=== PATIENT | male | born 1955 ===

== ENCOUNTER 2023-05-31 14:07 | Inpatient (IN) | payer BC, MEDICARE, SELFPAY ==
[2023-05-31] VITALS (10 sets, daily range): BP systolic 123–151; BP diastolic 65–73
--- NOTE | 2023-05-31 12:25 | ED.GENMED ---
History of Present Illness
General
Chief Complaint: Dehydration Symptoms
Time Seen by Provider: 05/31/23 12:24
Travel History
Have you had any contact with someone who has COVID-19?: No
Do you have any symptoms of coronavirus? Fever > 100 degrees, chills, cough, shortness of breath, sore throat, loss of taste or smell, muscle aches, or headache?: No
History of Present Illness
History of Present Illness:
HPI: The patient started having weakness last evening. Today about 3 hours ago, the patient had 'heartburn'. He had trouble getting out of the car. EMS was called. He was given aspirin and nitroglycerin prior to arrival which has not resolved
the symptoms.
EXAM:
GENERAL: Well appearing in no distress
HEENT: Moist oral mucosa
CARDIOVASCULAR: No murmurs, normal heart rate, regular rhythm, No chest wall tenderness
PULMONARY: No respiratory distress, breath sounds are clear and equal
ABDOMEN: Soft with no peritoneal signs, no tenderness
NEUROLOGIC: Excellent strength all extremities, no coordination deficits
PSYCHIATRIC: Appropriate mental status, normal insight and judgement
EXTREMITIES: Nontender, no edema, moves all extremities equally
SKIN: No rash, no lesions
TIME OF INITIAL ENCOUNTER: 12:22 PM
NUMBER AND COMPLEXITY OF PROBLEMS ADDRESSED AT THE ENCOUNTER
� Chronic conditions affecting care: High blood pressure
� Acute Exacerbation and/or Progression of Chronic Illness: This is an acute problem
� Differential Diagnosis includes: ACS/STEMI, GERD/gastritis, noncardiac chest pain
AMOUNT AND/OR COMPLEXITY OF DATA TO BE REVIEWED AND ANALYZED
� I performed an independent evaluation of and my interpretation is:
EKG: There is ST elevation in the inferior leads with reciprocal changes in the precordial leads�this is new in comparison to 10/02/2022
CT:
X-rays:
Laboratory Studies: White count 20.1, hemoglobin normal at 15.0, sodium 129, initial troponin less than 0.012
Other:
� Review of other/old records: The patient was here this past September with fatigue/dehydration�at that time white count was 12.0 and renal function was normal
� Clinical information was obtained by an independent historian: I spoke to the at bedside
� Prescriptions/Medications Considered but not given:
� Further testing considered but not performed:
RISK OF COMPLICATIONS AND/OR MORBIDITY OR MORTALITY OF PATIENT MANAGEMENT
� Social determinants of health affecting care: Lives at home
� Discussion with other providers: STEMI alert called at 12:24 PM�I also texted Dr. Tinoco at time of my review of EKG. Dr. Briceno arrive shortly after STEMI alert called.
� Escalation of care including admission/observation vs risk of discharge considered: EKG is changed compared to prior. The patient describes more of a heartburn count of sensation and no 'chest pain'. The symptoms in the chest
are acute over the past hour and a half. I am concerned for inferior wall STEMI. He was given aspirin prior to arrival. The patient was given by EMS and I also asked the nurse to give Brilinta. I asked nursing to let Dr. Briceno decide regarding
heparinization.
Phy Exam
Physical Exam
Physical Exam:
See HPI
Course
Orders/Labs/Results
Orders:
Orders
05/31/23 12:11
Electrocardiogram (*1) Urgent
Reason for Study: Chest Pain
EKG- Treatment ONCE
05/31/23 12:24
Type+Screen Urgent
Complete Blood Count/With Diff Urgent
Comprehensive Metabolic Panel Urgent
Protime/PTT Urgent
Troponin I Urgent
05/31/23 12:31
Fentanyl Citrate/Pf [Sublimaze] 100 mcg .ROUTE .STK-MED ONE
Midazolam HCl [Versed] 2 mg .ROUTE .STK-MED ONE
05/31/23 12:32
Heparin 10,000 units .ROUTE .STK-MED ONE
Heparin 1000 Units/500 ml [Heparin] 1,000 units in 500 ml .ROUTE .STK-MED
Heparin Sodium,Porcine/Ns/Pf [Heparin 2000 Units/1000 ml] 2,000 unit in 1,000 ml .ROUTE .STK-MED
Lidocaine HCl/Pf [Xylocaine-Mpf 1% Vial] 50 mg .ROUTE .STK-MED ONE
Nitroglycerin [Tridil] 1,500 mcg .ROUTE .STK-MED ONE
05/31/23 12:40
Heparin 5,000 units .ROUTE .STK-MED ONE
Ticagrelor [Brilinta] 180 mg .ROUTE .STK-MED ONE
05/31/23 12:49
Verapamil Injectable [Isoptin/Verapamil Injection] 5 mg .ROUTE .STK-MED ONE
05/31/23 13:36
Nitroglycerin [Tridil] 1,500 mcg .ROUTE .STK-MED ONE
Abnormal Lab Results
05/31/23 05/31/23 05/31/23
12: 12:59 13:08
WBC 20.1 H 10^3/uL
(4.8-10.8)
MCH 31.2 H pg
(27.0-31.0)
Abs Immat Gran (auto) 0.1 H 10^3/uL
(0-0.05)
Absolute Neuts (auto) 14.4 H 10^3/uL
(1.4-6.5)
Absolute Lymphs (auto) 4.4 H 10^3/uL
(1.2-3.4)
Absolute Monos (auto) 1.0 H 10^3/uL
(0.1-0.6)
Immature Gran % 0.6 H %
(0-0.5)
Sodium 129 L mmol/L
(135-145)
Chloride 93 L mmol/L
(98-107)
BUN 23 H mg/dl
(9-20)
Glucose 141 H mg/dl
(70-99)
POC ACT Low Range 229 H Seconds 326 H Seconds
(116-155) (116-155)
05/31/23
13:31
WBC
MCH
Abs Immat Gran (auto)
Absolute Neuts (auto)
Absolute Lymphs (auto)
Absolute Monos (auto)
Immature Gran %
Sodium
Chloride
BUN
Glucose
POC ACT Low Range 377 H Seconds
(116-155)
05/31/23 12:24
05/31/23 12:24
Vital Signs
Initial and Last Documented VS:
Initial Vital Signs
Temp Pulse Resp BP Pulse Ox
98.3 F 68 20 129/66 99
05/31/23 12:11 05/31/23 12:11 05/31/23 12:11 05/31/23 12:11 05/31/23 12:11
Last Documented Vital Signs
Temp Pulse Resp BP Pulse Ox
98.3 F 68 20 129/66 99
05/31/23 12:11 05/31/23 12:11 05/31/23 12:11 05/31/23 12:11 05/31/23 12:11
*Critical Care Note
Total Time (30-74mins, 75-104mins- exclusive of procedures): Not Applicable
ED Attending Note
-
Portions of this chart may have been created with voice recognition software.� Occasional wrong word or��sound alike� substitutions may have occurred due to the inherent limitations of voice recognition software.
Discharge Plan
Departure
Patient Disposition: Admit
Date of Disposition: 05/31/23
Time of Disposition: 12:33
Presentation/result/management discussed w/ accepting MD/DO: dr briceno
Discharge Problem:
Acute ST elevation myocardial infarction (STEMI) of inferior wall
Interventions
Interventions:
*Risk Screen - Suicide Last Done: 05/31/23 12:07
*General Assessment Last Done: 05/31/23 12:07
*Neglect/Abuse Screening Last Done: 05/31/23 12:07
ED- Fall Risk Assessment Last Done: 05/31/23 12:50
*ED COVID-19 Vaccine History Last Done: 05/31/23 12:07
*Nursing Disposition Last Done: 05/31/23 12:50
ED- Cardiac Assessment Last Done: 05/31/23 12:22
ED- Neurological Assessment Last Done: 05/31/23 12:22
ED- Pulmonary Assessment Last Done: 05/31/23 12:22
Discharge Date and Time
Discharge Date/Time: 05/31/23 12:51
--- NOTE | 2023-05-31 12:31 | ED TECH ---
A STEMI ALERT was called# [id number] # per @12:24 .
[2023-05-31 12:42] LABS: % Basophils 0.2 % (0-2); % Eosinophils 0.1 % (0-6); % Immature Granulocytes 0.6 % (0-0.5); % Neutrophils 72.1 % (42.2-75.2); Absolute Basophils 0.1 10^3/uL (0-0.2); Absolute Immature Granulocytes 0.1 10^3/uL (0-0.05); Absolute Lymphocytes 4.4 10^3/uL (1.2-3.4); Absolute Neutrophils 14.4 10^3/uL (1.4-6.5); Hematocrit 44.8 % (39.0-52.0); Mean Corp Hgb Conc. 33.5 g/dL (33.0-37.0); Mean Corpuscular Hgb 31.2 pg (27.0-31.0); Mean Corpuscular Volume 93.1 fL (80.0-94.0); Mean Platelet Volume 8.7 fL (7.4-10.4); Nucleated Red Blood Cells % 0 % (-); Platelet Count 385 10^3/uL (130-400); Red Blood Cell Count 4.81 10^6/uL (4.70-6.10); Red Cell Dist. Width 12.2 % (11.5-14.5); White Blood Cell Count 20.1 10^3/uL (4.8-10.8)
[2023-05-31 12:52] LABS: INR 1.04; PT 13.5 Sec (11.4-14.6)
[2023-05-31 12:53] LABS: APTT 25.5 Sec (23.4-35.0)
--- NOTE | 2023-05-31 12:56 | HPS.HSE ---
Family Physician
-
Family Physician: Zahraa Mar
Chief Complaint
-
Inferior STEMI
History of Present Illness
68 yo WM h/o HTN, HLD, neurogenic lymes with residual weakness and chronic fatigue, daily ETOH and family history of CAD. He had worsening weakness last night with difficultly getting out of the car. 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
called EMS, ASA, nitro sl given with no relief. EKG on arrival slight inferior ST elevation and reciprocal ST depression ant/lat leads. He was given heparin, Brilinta and brought urgently to the lab technologist.
Medical History
Past Medical History
Past Medical History: Reports HTN and Hypercholesterolemia
Additional Past Medical History:
Cataracts, neurogenic lymes disease, chronic fatigue
Past Surgical History: Reports Appendectomy and Other (R cataract)
Social History
Tobacco: Non-smoker
Alcohol: Daily (3 beers/day)
Family History
Family History: CAD and Cancer
Allergies / Home Medications
Allergies reflects when Allergies were last updated in [facility].
Home Medications with original date entered in [facility]
Allergy/Medication List:
Allergies
Allergy/AdvReac Type Severity Reaction Status Date / Time
Penicillins Allergy Unknown Unknown Verified 05/31/23 13:03
�Medication �Instructions �Recorded �Confirmed �Type
amlodipine 10 mg tablet 10 mg PO DAILY Blood Pressure 05/31/23 05/31/23 History
hydrochlorothiazide 50 mg tablet 50 mg PO DAILY Blood Pressure 05/31/23 05/31/23 History
losartan 100 mg tablet 100 mg PO DAILY Blood Pressure 05/31/23 05/31/23 History
Review of Systems
-
Constitutional: Reports Fatigue
Cardiac: Reports Chest Pain ('heartburn')
Physical Exam
Vital Signs
Vital Signs
Temp Pulse Resp BP Pulse Ox
98.3 F 68 20 129/66 99
05/31/23 12:11 05/31/23 12:11 05/31/23 12:11 05/31/23 12:11 05/31/23 12:11
Physical Exam
Cardiac: S1/S2 and Regular Rhythm (full exam deferred as being prepped and draped for emergent cath)
Neuro: AO x 3
Laboratory Results
-
05/31/23 12:24
Data Reviewed
-
Medical Tests (Nuc Med, Echo, EKG etc): Report Reviewed by me
Impression/Plan
-
PCP: Zahraa Mar MD
IMPRESSION:
Inferior STEMI
HTN
HLD
Neurogenic Lyme's disease 2014
Chronic myelopathy with LE weakness
Cataracts
daily ETOH
PLAN:
Admit IVU post cath, occluded LCx
serial troponin to peak
Check Echo
Leukocytosis - afebrile, trend, if remains elevated shultz culture
DAPT ASA/Brilinta (CM to eval cost)
continue losartan, amlodipine, stop HCTZ and add BB
check CVE start high intensity statin
ETOH cessation reinforced
Cardiac rehab c/s
f/u [facility]
Monitor on tele 48 hour post STEMI
[2023-05-31 13:04] LABS: ACT-LR - POC 229 Seconds (116-155)
[2023-05-31 13:09] LABS: ALT (SGPT) 28 U/L (0-50); AST (SGOT) 25 U/L (17-59); Albumin 4.4 g/dl (3.5-5.0); Alkaline Phosphatase 70 U/L (38-126); Blood Urea Nitrogen 23 mg/dl (9-20); Calcium 9.4 mg/dl (8.4-10.2); Carbon Dioxide 24 mmol/L (22-30); Chloride 93 mmol/L (98-107); Glucose 141 mg/dl (70-99); Potassium 3.7 mmol/L (3.5-5.1); Sodium 129 mmol/L (135-145); Total Bilirubin 0.9 mg/dl (0.2-1.3); Total Protein 7.1 g/dl (6.3-8.2); Troponin I < 0.012 ng/ml; eGFR > 60.00
[2023-05-31 13:18] LABS: ACT-LR - POC 326 Seconds (116-155)
[2023-05-31 13:38] LABS: ACT-LR - POC 377 Seconds (116-155)
[2023-05-31 13:59] LABS: ACT-LR - POC 261 Seconds (116-155)
[2023-05-31] MEDS: TYLENOL 650 MG PO (14:35)
--- NOTE | 2023-05-31 14:42 | ITS.CL.CATH ---
Explosive Ordnance Disposal Technician - Catheterization
Cardiac Catheterization
Procedure Report:
LEFT HEART CATH AND CORONARY INTERVENTION
Date of Procedure: May 31, 2023
Referring: [facility] Emergency Department
PROCEDURES:
1. Left heart catheterization with coronary and single-plane left ventriculography
2. Balloon angioplasty of the AV continuation of the circumflex into a terminal obtuse marginal branch with a 2.0 mm balloon and balloon angioplasty to the distal circumflex with a 2.0 mm balloon.
3. Suction thrombectomy with RASHIDA catheter and placement of QuickCross microcatheter to the terminal obtuse marginal branch.
INDICATION: This is a 68-year-old gentleman with a past medical history notable for hypertension, hyperlipidemia and 'neurologic Lyme disease' with residual weakness and fatigue. He consumes 3-4 alcoholic beverages daily. He reported the onset of
significant fatigue on the evening prior to admission and the development of substernal chest pressure approximately 3 hours prior to presentation. His electrocardiogram was notable for inferior ST segment elevation with reciprocal changes in the
anterolateral leads. He continued to experience chest discomfort and the decision was made to proceed with coronary angiography
ACCESS: Right radial artery, 6 Lao sheath
HEMODYNAMICS (mmHg):
AO (s/d, m) : 125/66, 88
LV (s/d) : 125/15
LVEDP : 25
CORONARY FINDINGS
Dominance: Right
LEFT MAIN: Normal
LEFT ANTERIOR DESCENDING: The LAD arises normally from the left main and runs in the anterior interventricular groove. The first diagonal branch and bifurcates to two large branches. The more lateral ranch has a 60% mid stenosis and the more
lateral branch has mild irregularities. The mid to distal LAD beyond the diagonal branch has diffuse minor irregularities with no focal obstructive stenosis
CIRCUMFLEX: The circumflex is a medium caliber nondominant vessel. OM1 is very small. OM 2 is a large and bifurcates distally into a smaller more lateral daughter branch and larger more vessel. The circumflex then continues in the AV groove and
becomes 100% occluded distally beyond a small posterolateral branch
RIGHT CORONARY: The right coronary artery is a dominant vessel with a 40% proximal stenosis. The PDA is a moderate to large caliber vessel. The posterolateral branch is small.
VENTRICULOGRAPHY: Left ventriculography is performed in an SHARPE projection. The digital single-plane left ventricular ejection fraction is estimated at 60%. No regional wall motion abnormalities.
ANGIOPLASTY PROCEDURE DETAIL: Upon review of the diagnostic angiogram the decision was made to proceed with percutaneous revascularization of the occluded distal circumflex. Intravenous heparin was administered and the ACT was monitored throughout
the procedure. A short BMW guidewire was advanced to the distal circumflex and beyond the occluded segment into a distal RV marginal branch with no resistance. Balloon angioplasty was performed using a 2.0 mm Trek balloon with serial inflations
distal to proximal. No antegrade flow was restored. A second BMW guidewire was obtained and advanced to a more distal branch and balloon dilation was performed with a 2 mm Trek balloon. Antegrade flow and still was not restored. At this point
and RASHIDA thrombectomy catheter was advanced to the distal circumflex and suction thrombectomy was performed. There was no significant thrombus noted in the suction syringe and only a small amount of debris was present in the basket after the
aspiration syringe was cleared. Antegrade flow was still not restored distally. A QuickCross microcatheter was then advanced over the guidewire to the distal OM branch. A small amount to contrast was injected with retrograde filling of a terminal
circumflex branch. A small amount of contrast staining was noted distally possible from a small wire perforation. It should be noted that ALL wire movements met no resistance
RADIATION SUMMARY: Fluoro Time (min): 13.4, Dose (mGy): 839, DAP (Gy.cm2) : 16.6
CONCLUSIONS
1. Occlusion of the AV circumflex. Balloon angioplasty of the distal circumflex. Antegrade flow was not restored.
2. Preserved left ventricular systolic function
RECOMMENDATIONS
1. Medical management
2. Serial troponin
Copy to: Dr. Eliseo Briceno
--- NOTE | 2023-05-31 15:13 | CM ---
robyn farah at [facility]- his copay is zero dollars/month-they are ordering enough stock for tomorrow.
[2023-05-31] MEDS: NSS 1000 IV (15:15)
--- NOTE | 2023-05-31 15:50 | CARDSERVLU ---
Echocardiogram with Lumason completed after protocol screening completed. Allergies verified.
Patent IV site: _R AC____
IV site flushed with 0.9% NaCl pre and post administration.
Diluted bolus method utilized to enhance visualization of ventricular beyer.
Total volume given: __1.5__ mL
Patient tolerated all procedures well without complications.
[2023-05-31] MEDS: LIPITOR 40 MG PO (16:59)
--- NOTE | 2023-05-31 19:06 | PTCARENOTE ---
Pt received post cath at 1430. Radial band intact with no issues. Band off by 1800. Pt stated he had a mild indigestion feeling on arrival but now relieved. Pt c/o of a headache which was relieved with tylenol.
[2023-05-31] MEDS: BRILINTA 90 MG PO (20:25)
--- NOTE | 2023-05-31 21:13 | PTCARENOTE ---
Assumed care at 1900. Patient comfortable, denies chest pain, troponin collected 8.960. VSS, walked to the bathroom assisted.Right radial site CDI,NSR on tele. Call [facility] in reach
--- NOTE | 2023-06-01 01:39 | PTCARENOTE ---
at 0113, patient had a 7 beat run of nonsustained VT. Rhythm strip placed in chart, patient asymptomatic. Troponin collected
--- NOTE | 2023-06-01 02:29 | PTCARENOTE ---
troponin elevated. Last result 33.6. Results reported to Andrea Brown PAC,no new orders received.
[2023-06-01 03:44] VITALS: BP 156/73
[2023-06-01 05:19] VITALS: BMI 30.2
[2023-06-01 06:12] LABS: Hematocrit 45.1 % (39.0-52.0); Hemoglobin 15.6 g/dL (13.0-18.0); Mean Corp Hgb Conc. 34.6 g/dL (33.0-37.0); Mean Corpuscular Hgb 31.7 pg (27.0-31.0); Mean Corpuscular Volume 91.7 fL (80.0-94.0); Mean Platelet Volume 8.9 fL (7.4-10.4); Platelet Count 372 10^3/uL (130-400); Red Blood Cell Count 4.92 10^6/uL (4.70-6.10); Red Cell Dist. Width 12.3 % (11.5-14.5); White Blood Cell Count 14.8 10^3/uL (4.8-10.8)
--- NOTE | 2023-06-01 06:22 | PTCARENOTE ---
Patient with no complaints overnight. Labs collected, call [facility] in reach
[2023-06-01 06:28] LABS: Blood Urea Nitrogen 18 mg/dl (9-20); Calcium 9.7 mg/dl (8.4-10.2); Carbon Dioxide 24 mmol/L (22-30); Chloride 99 mmol/L (98-107); Estimated Creatinine Clearance 83 ml/min; Glucose 116 mg/dl (70-99); HDL Cholesterol 60 mg/dl; LDL Cholesterol, Calculated 104 mg/dl; Potassium 3.5 mmol/L (3.5-5.1); Sodium 134 mmol/L (135-145); Total Cholesterol 185 mg/dl (50-199); Triglyceride 108 mg/dl (10-149); Very Low Density Lipoprotein 21 mg/dl (0-30); eGFR > 60.00
[2023-06-01 07:26] VITALS: BP 139/69
[2023-06-01 07:56] LABS: Magnesium 1.9 mg/dl (1.6-2.3)
[2023-06-01] MEDS: LOW STRENGTH ASPIRIN 81 MG PO (07:58)
[2023-06-01] MEDS: BRILINTA 90 MG PO ×2 (07:58→20:32)
[2023-06-01] MEDS: TOPROL XL 25 MG PO (07:58)
[2023-06-01] MEDS: COZAAR 100 MG PO (07:59)
[2023-06-01] MEDS: NORVASC 10 MG PO (07:59)
[2023-06-01] MEDS: KCL 40 MEQ PO (07:59)
--- NOTE | 2023-06-01 08:53 | W.PN.CARDCBS ---
Addendum entered and electronically signed by Santana Lima MD 06/01/23 15:46:
I saw and examined the patient.
The Vegetable Packer's note was reviewed and I agree with the note.
Comment: Briefly, 68-year-old man presenting with fatigue/weakness found to have inferior STEMI
He was taken for invasive coronary angiography on 05/31/2023 which revealed 100% occlusion of left circumflex artery however there was difficulty restoring coronary blood flow
Troponin peaked at 33.6 overnight
Echo with preserved left ventricular function and mild hypokinesis in the circumflex territory
Today he is resting comfortably in the IVU without chest discomfort or shortness of breath
No evidence of decompensated heart failure based on history or physical exam
Telemetry reviewed, episode of nonsustained VT seen overnight otherwise maintaining sinus rhythm
Continue medical management of coronary artery disease with aspirin/ticagrelor, high intensity statin, beta-danni
We discussed eventual cardiac rehab as well
Original Note:
Today's Communication / Plan
-
Monitor tele another 24 hours
trend trop to peak
replace K
add PPI
cardiac rehab
Impression / Plan
-
PCP: Zahraa Mar MD
CDY: none prior to admission, new to [facility]/ Andrea Briceno MD
68y/o, PMH HTN, HLD, neurogenic Lyme's with residual weakness and chronic fatigue, daily ETOH and family history of CAD.
New onset sudden weakness and fatigue with difficulty getting out of the car, with 3 hours of associated heartburn. EMS was called, no relief from asa, SL NTG. EKG in ER with subtle inferior ST elevations w/reciprocal anterolat ST depressions. He
admits to a few months of progressive fatigue that he thought was related to dehydration but has not improved with increased fluids. 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
[facility] 05/30- 100% distal LCx occlusion at AV groove- s/p complex thrombectomy and balloon angioplasty only with distal antegrade flow not restored
60% mid lateral branch of D1, 40% prox RCA
LVGram- EEF 60%, no regional WMA
Echo 05/30- nml LVSF, EF 55-60%, infero/inferolateral HK, mild MR
IMPRESSION:
Inferior STEMI
S/P complex thrombectomy/angioplasty only to LCx
Residual CAD to D1 branch and RCA
HTN
HLD
Neurogenic Lyme's disease (2014)
Chronic myelopathy with LE weakness
Cataracts
daily ETOH
PLAN:
Post complex LCx PCI with residual CAD, for medical management
Tele- SB/NSR with 3-7bt NSVT noted
Troponin rising 33.6- trend to peak
DAPT w/asa, brilinta- cost is acceptable
Continue amlodipine, losartan
Tolerating new start metoprolol XL 25/d
Lipid profile noted- started on atorvastatin 40/d
Cardiac rehab consult today
Still with some indigestion- will start protonix 40/d
Hypokalemia noted- replaced w/40KCL x1, will add Mag and repeat lytes in AM
Leukocytosis- lower today, will continue to monitor
ETOH cessation encouraged
Followup at [facility] arranged
monitor on tele another 24 hours
Progress Note - Accounts Specialist
Subjective
Date of Service: June 01, 2023
mild intermittent indigestion
denies cp/palps/dyspnea
oob ambulating
cath site without pain
Objective
Labs:
06/01/23 05:29
06/01/23 05:29
Labs
Hgb 15.6 g/dL (13.0-18.0) 06/01/23 05:29
Hct 45.1 % (39.0-52.0) 06/01/23 05:29
Plt Count 372 10^3/uL (130-400) 06/01/23 05:29
PT 13.5 Sec (11.4-14.6) 05/31/23 12:24
INR 1.04 05/31/23 12:24
APTT 25.5 Sec (23.4-35.0) 05/31/23 12:24
Sodium 134 mmol/L (135-145) L 06/01/23 05:29
Potassium 3.5 mmol/L (3.5-5.1) 06/01/23 05:
BUN 18 mg/dl (9-20) 06/01/23 05:29
Creatinine 0.9 mg/dL (0.7-1.3) 06/01/23 05:
Glucose 116 mg/dl (70-99) H 06/01/23 05:29
Troponins
05/31/23 05/31/23 06/01/23
12 19:08 01:36
Troponin I < 0.012 8.960 H* D 33.600 H* D
06/01/23
05:29
Troponin I 33.600 H*
Vital Signs and I&O:
Vital Signs
Temp Pulse Resp BP Pulse Ox
98.1 F 67 18 139/69 98
06/01/23 07:00 06/01/23 07:30 06/01/23 07:00 06/01/23 07:26 06/01/23 07:00
Vital Signs
Temp Pulse Resp BP Pulse Ox
98.1 F 67 18 139/69 98
06/01/23 07:00 06/01/23 07:30 06/01/23 07:00 06/01/23 07:26 06/01/23 07:00
Physical Exam
Physical Exam
AAOx3, MAEE 5/5
RRR S1 S@ no murmurs, distant HS
CTA bilat, non labored
soft abd, + bs
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
bilat extremities w/palpable pulses, no edema
[2023-06-01 09:40] LABS: Glycohemoglobin (HgbA1c) 5.8 % (4.0-5.6)
[2023-06-01] MEDS: PROTONIX 40 MG PO (10:33)
--- NOTE | 2023-06-01 11:38 | CM ---
Cm following for DC planning needs.
Met w/ patient at bedside. He informs that he resides w/ spouse in a private, multi level home. He is functionally indep. w/ ADLs, mobility without the use of any assisted device. 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
plans to retire in June.
Pt. has RX plan and uses [facility].
Reviewed anticipated cost of Brilinta.
Plan is for home without any anticipated needs.
CM will cont. to follow.
[2023-06-01 12:07] VITALS: BP 114/77
[2023-06-01 16:16] VITALS: BP 117/73
[2023-06-01] MEDS: LIPITOR 40 MG PO (17:55)
[2023-06-01] MEDS: LOVENOX 40 MG SC (17:57)
[2023-06-01 20:00] VITALS: BP 117/78
[2023-06-01 23:10] VITALS: BP 128/75
--- NOTE | 2023-06-01 23:45 | PTCARENOTE ---
R radial SILVIO and ecchymotic- POC discussed- pt verbalized understanding. VSS- SR/SB on the monitor. ambulating in the room a self- call within reach
[2023-06-02 04:14] VITALS: BP 126/80
[2023-06-02 05:00] LABS: Hematocrit 42.4 % (39.0-52.0); Hemoglobin 14.6 g/dL (13.0-18.0); Mean Corp Hgb Conc. 34.4 g/dL (33.0-37.0); Mean Corpuscular Hgb 31.4 pg (27.0-31.0); Mean Corpuscular Volume 91.2 fL (80.0-94.0); Mean Platelet Volume 8.9 fL (7.4-10.4); Platelet Count 352 10^3/uL (130-400); Red Blood Cell Count 4.65 10^6/uL (4.70-6.10); Red Cell Dist. Width 12.5 % (11.5-14.5); White Blood Cell Count 15.1 10^3/uL (4.8-10.8)
[2023-06-02 05:28] LABS: Blood Urea Nitrogen 20 mg/dl (9-20); Calcium 9.4 mg/dl (8.4-10.2); Carbon Dioxide 23 mmol/L (22-30); Chloride 105 mmol/L (98-107); Estimated Creatinine Clearance 83 ml/min; Glucose 99 mg/dl (70-99); Potassium 3.9 mmol/L (3.5-5.1); Sodium 134 mmol/L (135-145); eGFR > 60.00
[2023-06-02 08:05] VITALS: BP 126/54
[2023-06-02] MEDS: NORVASC 10 MG PO (08:16)
[2023-06-02] MEDS: COZAAR 100 MG PO (08:17)
[2023-06-02] MEDS: BRILINTA 90 MG PO (08:17)
[2023-06-02] MEDS: PROTONIX 40 MG PO (08:18)
[2023-06-02] MEDS: LOW STRENGTH ASPIRIN 81 MG PO (08:18)
[2023-06-02] MEDS: TOPROL XL 25 MG PO (08:18)
--- NOTE | 2023-06-02 11:09 | W.PN.CARDCBS ---
Addendum entered and electronically signed by Sha Burnett MD 06/02/23 13:44:
I saw and examined the patient.
The Cage Maker's note was reviewed and I agree with the note.
Comment:
GEN: No distress, awake, Ox3
HEENT: supple, anicteric, mmm
LUNGS: CTA, no wheezes/rales
CV: Reg, S1/S2, 1/6 syst LSB, no gallop
ABD: soft, BS+, NT/ND
EXT: No edema
NEURO: Gross non-focal
SKIN: No rash
Plan:
Doing well status post left circumflex PCI.
Continue aspirin and Brilinta.
He does have some sinus bradycardia. Continue atorvastatin, amlodipine, and losartan.
Okay to discharge on Toprol 25 mg daily. I advised him to call if he has any dizziness or lightheadedness.
Original Note:
Today's Communication / Plan
-
stable for d/c home
Impression / Plan
-
PCP: Zahraa Mar MD
CDY: none prior to admission, new to [facility]/ Andrea Briceno MD
68y/o, PMH HTN, HLD, neurogenic Lyme's with residual weakness and chronic fatigue, daily ETOH and family history of CAD.
New onset sudden weakness and fatigue with difficulty getting out of the car, with 3 hours of associated heartburn. EMS was called, no relief from asa, SL NTG. EKG in ER with subtle inferior ST elevations w/reciprocal anterolat ST depressions. He
admits to a few months of progressive fatigue that he thought was related to dehydration but has not improved with increased fluids. 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
[facility] 05/30- 100% distal LCx occlusion at AV groove- s/p complex thrombectomy and balloon angioplasty only with distal antegrade flow not restored
60% mid lateral branch of D1, 40% prox RCA
LVGram- EEF 60%, no regional WMA
Echo 05/30- nml LVSF, EF 55-60%, infero/inferolateral HK, mild MR
IMPRESSION:
Inferior STEMI
S/P complex thrombectomy/angioplasty only to LCx
Residual CAD to D1 branch and RCA
HTN
HLD
Neurogenic Lyme's disease (2014)
Chronic myelopathy with LE weakness
Cataracts
daily ETOH
PLAN:
Post complex LCx PCI with residual CAD, for medical management
Tele- SB no further ectopy, denies LH, dizzy with HR in 50's
Troponin peaked at 33.6
DAPT w/asa, brilinta- cost is acceptable
Continue amlodipine, losartan, stop HCTZ
Tolerating new start metoprolol XL 25/d
Lipid profile noted- started on atorvastatin 40/d
Cardiac rehab recommended
indigestion all gone today, will stop protonix
Hypokalemia resolved K 3.9 today
Leukocytosis stable no s/s of infection, chronically elevated
ETOH cessation encouraged, Heart healthy diet reinforced
Followup at [facility] arranged
stable for d/c home
Progress Note - Grill Chef
Subjective
Date of Service: June 02, 2023
no cp, sob, dizziness
Objective
Labs:
06/02/23 04:29
06/02/23 04:29
Labs
Hgb 14.6 g/dL (13.0-18.0) 06/02/23 04:29
Hct 42.4 % (39.0-52.0) 06/02/23 04:29
Plt Count 352 10^3/uL (130-400) 06/02/23 04:29
PT 13.5 Sec (11.4-14.6) 05/31/23 12:24
INR 1.04 05/31/23 12:24
APTT 25.5 Sec (23.4-35.0) 05/31/23 12:24
Sodium 134 mmol/L (135-145) L 06/02/23 04:29
Potassium 3.9 mmol/L (3.5-5.1) 06/02/23 04:29
BUN 20 mg/dl (9-20) 06/02/23 04:29
Creatinine 0.9 mg/dL (0.7-1.3) 06/02/23 04:29
Glucose 99 mg/dl (70-99) 06/02/23 04:29
Troponins
05/31/23 05/31/23 06/01/23
12:24 19:08 01:36
Troponin I < 0.012 8.960 H* D 33.600 H* D
06/01/23 06/01/23
05:29 12:11
Troponin I 33.600 H* 22.800 H* D
Vital Signs and I&O:
Vital Signs
Temp Pulse Resp BP Pulse Ox
98 F 49 20 126/54 98
06/02/23 08:02 06/02/23 10:00 06/02/23 08:02 06/02/23 08:05 06/02/23 08:02
Vital Signs
Temp Pulse Resp BP Pulse Ox
98 F 49 20 126/54 98
06/02/23 08:02 06/02/23 10:00 06/02/23 08:02 06/02/23 08:05 06/02/23 08:02
Intake & Output
05/31/23 06/01/23 06/02/23 06/03/23
06:59 06:59 06:59 06:59
Intake Total 240 / 240
Balance 240 / 240
Physical Exam
Physical Exam
NAD< AOX3
S1, S2, RRR
CTAB, non labored
SNTND Bsx4
R rad site ecchymotic, good pulse
[2023-06-02 11:35] VITALS: BP 116/59
--- NOTE | 2023-06-02 13:10 | W.DS.TRANS ---
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
-
Discharge Instructions:
Discharge Diagnosis/Procedures STEMI, s/p thrombectomy and angioplasty only to
Left Circumflex artery
Diet Low Cholesterol
Driving Restrictions No driving for 24 hours
Other Services Cardiac Rehab
Instructions:
Stand-Alone Forms: DC Instructions- Cath/EP Lab
Return to Work
Changes to Home Medications: Yes
Discharge Medications:
DC Medications w/original date entered in [employer]
amlodipine 10 mg tablet 10 mg PO DAILY Blood Pressure 05/31/23
losartan 100 mg tablet 100 mg PO DAILY Blood Pressure 05/31/23
ticagrelor 90 mg tablet (Brilinta) 90 mg PO BID #90 tabs 06/01/23
aspirin 81 mg chewable tablet (Children's Aspirin) 81 mg PO DAILY #1 tab 06/02/23
atorvastatin 40 mg tablet 40 mg PO QPM #90 tabs 06/02/23
metoprolol succinate 25 mg tablet,extended release 24 hr 25 mg PO DAILY #90 tabs 06/02/23
Home Medication Changes
stopped HCTZ, new to toprol, atrovastatin, asa, brilinta
Pending Results: No
[2023-06-02 19:10] LABS: Hepatitis C Antibody Negative (Negative)
== END 2023-06-02 13:29 | disposition home or self-care (01) | DRG 251 ==
LOC: IVU 14:07
PROVIDERS: Nurse Practitioner Adult Health; ADMITTING PHYSICIAN Internal Medicine Interventional Cardiology; EMERGENCY PHYSICIAN Emergency Medicine; FAMILY PHYSICIAN Internal Medicine
PROC: B2111ZZ Fluoroscopy of Multiple Coronary Arteries using Low Osmolar Contrast (ICD-10-PCS; 2023-05-31)
PROC: B2151ZZ Fluoroscopy of Left Heart using Low Osmolar Contrast (ICD-10-PCS; 2023-05-31)
PROC: 02C03ZZ Extirpation of Matter from Coronary Artery, One Artery, Percutaneous Approach (ICD-10-PCS; 2023-05-31)
PROC: 4A023N7 Measurement of Cardiac Sampling and Pressure, Left Heart, Percutaneous Approach (ICD-10-PCS; 2023-05-31)
DX: I21.19 ST elevation (STEMI) myocardial infarction involving other coronary artery of inferior wall (principal); G95.9 Disease of spinal cord, unspecified; I25.10 Atherosclerotic heart disease of native coronary artery without angina pectoris; I10 Essential (primary) hypertension; H26.9 Unspecified cataract
CPT/HCPCS: 80048; 80053; 80061; 83036; 83735; 84484; 85025; 85027; 85347; 85610; 85730; 86803; 86850; 86900; 86901; 92941; 93005; 93306; 93458; 99285; C1725; C1769; C1894; Q9950; Q9967

== ENCOUNTER 2023-07-22 11:32 | Outpatient (RCR) | payer BC, SELFPAY | END 2023-07-22 23:59 | disposition home or self-care (01) | LOC: CRHB 11:32 | PROVIDERS: ATTENDING PHYSICIAN Internal Medicine Interventional Cardiology | DX: Z95.5 Presence of coronary angioplasty implant and graft (principal); I25.10 Atherosclerotic heart disease of native coronary artery without angina pectoris | CPT/HCPCS: G0422; G0423 ==

== ENCOUNTER 2023-08-19 08:33 | Outpatient (RCR) | payer BC, SELFPAY | END 2023-08-19 23:59 | disposition home or self-care (01) | LOC: CRHB 08:33 | PROVIDERS: ATTENDING PHYSICIAN Internal Medicine Interventional Cardiology | DX: I25.10 Atherosclerotic heart disease of native coronary artery without angina pectoris (principal); Z95.5 Presence of coronary angioplasty implant and graft; I25.2 Old myocardial infarction | CPT/HCPCS: G0422; G0423 ==

== ENCOUNTER 2023-09-16 10:29 | Outpatient (RCR) | payer BC, SELFPAY | END 2023-09-16 23:59 | disposition home or self-care (01) | LOC: CRHB 10:29 | PROVIDERS: ATTENDING PHYSICIAN Internal Medicine Interventional Cardiology; FAMILY PHYSICIAN Internal Medicine | DX: I25.10 Atherosclerotic heart disease of native coronary artery without angina pectoris (principal); Z98.61 Coronary angioplasty status; I25.2 Old myocardial infarction | CPT/HCPCS: G0422; G0423 ==

== ENCOUNTER → 2024-02-28 09:12 | Outpatient (REF) | payer BC, MEDICARE, SELFPAY | LOC: RCS 09:12 | PROVIDERS: ATTENDING PHYSICIAN Internal Medicine Interventional Cardiology; FAMILY PHYSICIAN Internal Medicine | DX: I25.2 Old myocardial infarction (principal) | CPT/HCPCS: 93306 ==

== ENCOUNTER 2025-01-14 08:54 | Outpatient (RCR) | payer MEDICARE, BC, SELFPAY | END 2025-01-14 23:59 | disposition home or self-care (01) | LOC: RPT 08:54 | PROVIDERS: ATTENDING PHYSICIAN Specialist; FAMILY PHYSICIAN Nurse Practitioner | DX: R26.81 Unsteadiness on feet (principal); Z73.6 Limitation of activities due to disability; M62.81 Muscle weakness (generalized); Z91.81 History of falling | CPT/HCPCS: 97110; 97112; 97162; 97530 ==

== ENCOUNTER 2025-02-20 07:19 | Outpatient (RCR) | payer MEDICARE, BC, SELFPAY | END 2025-02-20 23:59 | disposition home or self-care (01) | LOC: RPT 07:19 | PROVIDERS: ATTENDING PHYSICIAN Specialist; FAMILY PHYSICIAN Nurse Practitioner | DX: R26.81 Unsteadiness on feet (principal); Z73.6 Limitation of activities due to disability; M62.81 Muscle weakness (generalized); Z91.81 History of falling | CPT/HCPCS: 97110; 97112; 97116; 97530 ==